=== PATIENT | female | born 1955 | race Asian ===

== ENCOUNTER 2017-03-23 14:28 | Emergency (ER) | payer SELFPAY ==
[~2017-03-23] VITALS: Ht 162.6 cm; Wt 65.8 kg
[2017-03-23 14:39] VITALS: BP 147/84
[2017-03-23] MEDS ORDERED: FLONASE0.05 MG/Ac NS (14:43)
[2017-03-23] MEDS ORDERED: [UNRECOGNIZED DRUG - OTHER] PO (14:43)
--- NOTE | 2017-03-23 18:59 | NUR ---
PATIENT LEFT WITHOUT BEING SEEN BY DR. AMADOR. NO FURTHER CARE PROVIDED FOR PATIENT.
== END 2017-03-23 18:59 | disposition left against medical advice (07) ==
LOC: MED 14:28
DX: L29.9 Pruritus, unspecified (principal); Z53.21 Procedure and treatment not carried out due to patient leaving prior to being seen by health care provider